=== PATIENT | female | born 2000 | race Two or more races ===

== ENCOUNTER 2019-04-29 16:11 | Observation (INO) | payer MEDICAID ==
[~2019-04-29] VITALS: Ht 167.6 cm; Wt 60.0 kg
[2019-04-29] MEDS ORDERED: ACETAMINOPHEN 325MG TABLET PO ONE (16:30)
[2019-04-29 17:07] VITALS: BP 121/70
[2019-04-29] MEDS ORDERED: PNV11TAB MT (18:30)
[2019-04-29] MEDS ORDERED: CITRIC ACID/SODIUM CITRATE SOLN 30ML UDC PO NR (18:30)
== END 2019-04-29 18:54 | disposition home or self-care (01) ==
LOC: ER 16:11 → 8 EST LDRP 17:50
PROVIDERS: ADMIT Obstetrics & Gynecology; ATTEND Obstetrics & Gynecology
DX: O99.343 Other mental disorders complicating pregnancy, third trimester (principal); F41.9 Anxiety disorder, unspecified; Z3A.33 33 weeks gestation of pregnancy
CPT/HCPCS: 99281; G0378

== ENCOUNTER 2019-06-22 15:43 | Observation (INO) | payer MEDICAID ==
[~2019-06-22] VITALS: Ht 165.1 cm; Wt 75.7 kg
[~2019-06-22 15:43] MED LIST: PNV11TAB MT
== END 2019-06-22 19:00 | disposition home or self-care (01) ==
LOC: 8 EST LDRP 15:43
PROVIDERS: ADMIT Obstetrics & Gynecology; ATTEND Obstetrics & Gynecology
DX: O62.9 Abnormality of forces of labor, unspecified (principal); Z3A.38 38 weeks gestation of pregnancy
CPT/HCPCS: 76805; 76818; 99281; G0378

== ENCOUNTER 2019-06-25 12:31 | Observation (INO) | payer MEDICAID ==
[~2019-06-25] VITALS: Ht 165.1 cm; Wt 74.4 kg
== END 2019-06-25 14:20 | disposition home or self-care (01) ==
LOC: 8 EST LDRP 12:31
PROVIDERS: ADMIT Obstetrics & Gynecology; ATTEND Obstetrics & Gynecology
DX: Z34.83 Encounter for supervision of other normal pregnancy, third trimester (principal); Z3A.38 38 weeks gestation of pregnancy
CPT/HCPCS: 59025; 76815; 76818; G0378

== ENCOUNTER 2019-06-27 09:05 | Inpatient (IN) | payer MEDICAID ==
[~2019-06-27] VITALS: Ht 165.1 cm; Wt 76.2 kg
[2019-06-27] MEDS ORDERED: LACTATED RINGERS 1,000 ML IV SCH (10:14)
[2019-06-27] MEDS ORDERED: CARBOPROST TROMETHAMINE 250 MCG/ML AMPUL IM PRN (10:15)
[2019-06-27] MEDS ORDERED: MISOPROSTOL 100MCG TABLET VG SCH (10:15)
[2019-06-27] MEDS ORDERED: LIDOCAINE HCL 1% 20ML VIAL (Pyxis) INJ INFIL SCH (10:15)
[2019-06-27] MEDS ORDERED: METHYLERGONOVINE MALEATE 0.2 MG/ML IM PRN (10:15)
[2019-06-27] MEDS ORDERED: RHO(D) IMMUNE GLOBULIN 300 MCG/SYR IM NR (10:15)
[2019-06-27] MEDS ORDERED: NALOXONE HCL 0.4 MG/ML 1ML VIAL IM PRN (10:15)
[2019-06-27 11:39] LABS: MEAN CORPUSCULAR HEMOGLOBIN 29.9 pg (28.0-32.0); MEAN CORPUSCULAR VOLUME 89.1 fL (81.0-99.0); MEAN PLATELET VOLUME 9.5 fl (7.4-10.4); PLATELET 187 x1000/uL (130-400); RED CELL DISTRIBUTION WIDTH 13.8 % (11.6-14.6)
[2019-06-27 11:48] LABS: PARTIAL THROMBOPLASTIN TIME 28.5 sec (23.4-31.0)
[2019-06-27 12:16] LABS: PROTHROMBIN TIME < 9.0 sec (9.6-11.0)
[2019-06-27 12:17] LABS: INR < 0.9
[2019-06-27 13:13] LABS: HEPATITIS B SURFACE ANTIGEN NEGATIVE
[2019-06-27 14:28] LABS: PLATELET ESTIMATE NORMAL
[2019-06-27] MEDS: BUTORPHANOL TARTRATE 2 MG/ML VIAL IV PRN ×2 (16:27→21:26)
[2019-06-27] MEDS: DEXT 5%/LR + PITOCIN 20UNITS/L 1,000 ML IV SCH (16:27)
[2019-06-28] MEDS ORDERED: METOCLOPRAMIDE HCL 10MG/2ML VIAL IV PRN
[2019-06-28] MEDS ORDERED: ONDANSETRON HCL 4MG/2ML INJ IV PRN
[2019-06-28] MEDS ORDERED: DIPHENHYDRAMINE 50MG/ML VIAL IV PRN
[2019-06-28] MEDS ORDERED: DIPHENHYDRAMINE 50MG/ML VIAL IM PRN
[2019-06-28] MEDS ORDERED: ROPIVACAINE HCL 10MG/ML 20 ML VIAL EPI ONE
[2019-06-28] MEDS ORDERED: ROPIVACAINE HCL/PF EPIDURAL 200 ML EPI SCH
[2019-06-28] MEDS ORDERED: ROPIVACAINE HCL/PF EPIDURAL 200 ML EPI PRN (00:15)
[2019-06-28] MEDS: ACETAMINOPHEN 325MG TABLET PO PRN ×2 (04:25→12:16)
[2019-06-28] MEDS: CEFAZOLIN 2,000 MG in DEXT 5% WATER 100 ML IV SCH ×3 (04:43→18:59)
[2019-06-28] MEDS ORDERED: FENTANYL CITRATE/PF 50MCG/ML 2ML VIAL ONE (13:50)
[2019-06-28] MEDS ORDERED: LACTATED RINGERS 500 ML IV SCH (15:00)
[2019-06-28] MEDS ORDERED: LACTATED RINGERS 1,000 ML IV SCH (15:00)
[2019-06-28] MEDS ORDERED: LIDOCAINE HCL 1% 20ML VIAL (Pyxis) INJ INFIL SCH (19:15)
[2019-06-28] MEDS ORDERED: BISACODYL 10MG SUPP PR PRN (20:00)
[2019-06-28] MEDS ORDERED: METHYLERGONOVINE MALEATE 0.2 MG/ML IM PRN (20:00)
[2019-06-28] MEDS ORDERED: LANOLIN OINT 7GM TUBE TOP PRN (20:00)
[2019-06-28] MEDS ORDERED: ACETAMINOPHEN WITH CODEINE 300/30MG TABLET PO PRN (20:00)
[2019-06-28] MEDS ORDERED: DIPHENHYDRAMINE 25MG CAPSULE PO PRN (20:00)
[2019-06-28] MEDS ORDERED: HEMORRHOIDAL SUPP PR PRN (20:00)
[2019-06-28] MEDS ORDERED: BENZOCAINE/LANOLIN/ALOE VERA SPRAY TOP PRN (20:00)
[2019-06-28] MEDS ORDERED: RHO(D) IMMUNE GLOBULIN 300 MCG/SYR IM PRN (20:00)
[2019-06-28] MEDS ORDERED: GLYCERIN/WITCH HAZEL LEAF MEDICATED PAD TOP PRN (20:00)
[2019-06-28] MEDS ORDERED: DEXT 5%/LR + PITOCIN 20UNITS/L 1,000 ML IV SCH (20:00)
[2019-06-28] MEDS: IBUPROFEN 400MG TABLET PO PRN (20:47)
[2019-06-28] MEDS ORDERED: DOCUSATE SODIUM 100MG CAPSULE PO SCH (21:00)
[2019-06-28] MEDS ORDERED: MAGNESIUM/ALUMINUM HYDROXIDE/SIMETHICONE 30ML UDC PO SCH (21:00)
[2019-06-28] MEDS ORDERED: SIMETHICONE 80MG TABLET CHEW PO SCH (21:00)
[2019-06-29] MEDS: CEFAZOLIN 2,000 MG in DEXT 5% WATER 100 ML IV SCH ×2
[2019-06-29 00:21] VITALS: BP 116/71
[2019-06-29 04:12] VITALS: BP 113/71
[2019-06-29 06:42] LABS: BASOPHILS % 0.2 % (0.0-2.0); EOSINOPHILS % 0.1 % (0.0-5.0); HEMATOCRIT. 31.7 % (36.0-48.0); HEMOGLOBIN. 10.7 g/dL (12.0-16.0); LYMPHOCYTES % 33.9 % (20.0-50.0); MEAN CORPUSCULAR HEMOGLOBIN 29.8 pg (28.0-32.0); MEAN CORPUSCULAR VOLUME 88.3 fL (81.0-99.0); MONOCYTES % 6.9 % (2.0-8.0); NEUTROPHILS % 58.9 % (40.0-76.0); RED BLOOD CELL COUNT 3.59 mill/uL (4.2-5.4); RED CELL DISTRIBUTION WIDTH 13.7 % (11.6-14.6)
[2019-06-29] MEDS ORDERED: PRENATAL VIT/FE FUMARATE/FA TABLET PO SCH (09:00)
[2019-06-29] MEDS: FERROUS SULFATE 325MG TABLET PO SCH ×3 (09:12→21:48)
[2019-06-29] MEDS: IBUPROFEN 400MG TABLET PO PRN (09:13)
[2019-06-29 11:49] LABS: MEAN PLATELET VOLUME 9.6 fl (7.4-10.4); PLATELET 162 x1000/uL (130-400)
[2019-06-29] MEDS: ACETAMINOPHEN WITH CODEINE 300/30MG TABLET PO PRN ×2 (17:31→21:48)
[2019-06-29] MEDS: DEXT 5%/LR + PITOCIN 20UNITS/L 1,000 ML IV SCH (18:51)
[2019-06-29 20:00] VITALS: BP 98/65
[2019-06-30 04:00] VITALS: BP 122/72
[2019-06-30] MEDS: ACETAMINOPHEN WITH CODEINE 300/30MG TABLET PO PRN ×2 (06:22→10:19)
[2019-06-30 07:30] VITALS: BP 117/56
[2019-06-30] MEDS: FERROUS SULFATE 325MG TABLET PO SCH (10:17)
[2019-06-30 10:19] LABS: CLARITY URINE CLEAR (CLEAR); COLOR URINE YELLOW (YELLOW); KETONES URINE NEGATIVE (NEGATIVE); LEUKOCYTE ESTERASE URINE 1+ (NEGATIVE); NITRITE URINE NEGATIVE (NEGATIVE); OCCULT BLOOD URINE 3+ (NEGATIVE); PROTEIN URINE NEGATIVE (NEGATIVE); SPECIFIC GRAVITY URINE 1.017 (1.005-1.030)
[2019-06-30 10:39] LABS: *AMPHETAMINES SCREEN URINE NEGATIVE (NEGATIVE)
[2019-06-30 10:40] LABS: *BARBITURATES SCREEN URINE NEGATIVE (NEGATIVE); *BENZODIAZEPINES SCREEN URINE NEGATIVE (NEGATIVE); *COCAINE SCREEN URINE NEGATIVE (NEGATIVE); METHADONE URINE SCREEN NEGATIVE (NEGATIVE); PHENCYCLIDINE URINE SCREEN NEGATIVE (NEGATIVE)
[2019-06-30 10:41] LABS: CANNABINOID URINE SCREEN NEGATIVE (NEGATIVE)
[2019-06-30 11:20] LABS: OPIATES URINE SCREEN PRESUMTIVE POSITIVE (NEGATIVE)
== END 2019-06-30 12:12 | disposition home or self-care (01) | DRG 560 ==
LOC: 8 EST LDRP 09:05 → OBSVTOIN 09:05 → 8EST 06-29 12:59
PROVIDERS: ADMIT Obstetrics & Gynecology; ATTEND Obstetrics & Gynecology
PROC: 10D07Z6 Extraction of Products of Conception, Vacuum, Via Natural or Artificial Opening (ICD-10-PCS; principal; 2019-06-28)
PROC: 0KQM0ZZ Repair Perineum Muscle, Open Approach (ICD-10-PCS; 2019-06-28)
PROC: 00HU33Z Insertion of Infusion Device into Spinal Canal, Percutaneous Approach (ICD-10-PCS; 2019-06-28)
PROC: 3E0R3BZ Introduction of Anesthetic Agent into Spinal Canal, Percutaneous Approach (ICD-10-PCS; 2019-06-28)
DX: O77.0 Labor and delivery complicated by meconium in amniotic fluid (principal); O70.1 Second degree perineal laceration during delivery; Z37.0 Single live birth; Z3A.39 39 weeks gestation of pregnancy
CPT/HCPCS: 36415; 80305; 80361; 81003; 86592; 86703; 86762; 86850; 86900; 87340; G0378; J0595; J0690; J2590; J2795; J3010; J7060; J7120; A4315